=== PATIENT | male | born 1940 | race Caucasian/White ===

== ENCOUNTER → 2020-04-23 10:17 | Outpatient (BNVA) | payer BC, SELFPAY | PROVIDERS: Family Provider Internal Medicine; PCP Internal Medicine; Referring Provider Dermatology; Visit Provider Dermatology | DX: Z85.828 Personal history of other malignant neoplasm of skin (principal); D48.9 Neoplasm of uncertain behavior, unspecified; L57.0 Actinic keratosis; D18.01 Hemangioma of skin and subcutaneous tissue; L82.1 Other seborrheic keratosis | CPT/HCPCS: 11102; 11103; 17000; 17003; 88304; 88305; 99203; 99204 ==

== ENCOUNTER → 2020-04-24 08:02 | Outpatient (BNVA) | payer BC, SELFPAY | PROVIDERS: Family Provider Internal Medicine; PCP Internal Medicine; Visit Provider Urology | DX: R33.9 Retention of urine, unspecified (principal) | CPT/HCPCS: 81001 ==

== ENCOUNTER → 2020-05-29 12:47 | Outpatient (BNVA) | payer BC, SELFPAY | PROVIDERS: Family Provider Internal Medicine; PCP Internal Medicine; Visit Provider Dermatology | DX: D48.9 Neoplasm of uncertain behavior, unspecified (principal) | CPT/HCPCS: 88304 ==

== ENCOUNTER → 2021-01-15 15:07 | Outpatient (BNVA) | payer MEDICARE, SELFPAY | PROVIDERS: Family Provider Internal Medicine; PCP Internal Medicine; Visit Provider Specialist | DX: G20 Parkinson's disease (principal) | CPT/HCPCS: 99204 ==

== ENCOUNTER → 2021-04-23 08:34 | Outpatient (BNVA) | payer MEDICARE, SELFPAY | PROVIDERS: Family Provider Internal Medicine; PCP Internal Medicine; Visit Provider Urology | DX: R33.9 Retention of urine, unspecified (principal) | CPT/HCPCS: 81003 ==

== ENCOUNTER → 2021-06-30 12:55 | Outpatient (BNVA) | payer MEDICARE, SELFPAY | PROVIDERS: Family Provider Internal Medicine; PCP Internal Medicine; Visit Provider Nurse Practitioner | DX: G20 Parkinson's disease (principal) | CPT/HCPCS: 99213; 99214 ==

== ENCOUNTER → 2022-01-01 09:42 | Outpatient (BNVA) | payer MEDICARE, SELFPAY | PROVIDERS: Family Provider Internal Medicine; PCP Internal Medicine; Visit Provider Nurse Practitioner | DX: G20 Parkinson's disease (principal); M25.561 Pain in right knee | CPT/HCPCS: 99212; 99213 ==

== ENCOUNTER → 2022-11-20 07:53 | Outpatient (BNVA) | payer MEDICARE, SELFPAY | PROVIDERS: Family Provider Internal Medicine; PCP Internal Medicine; Visit Provider Nurse Practitioner | DX: G20 Parkinson's disease (principal) | CPT/HCPCS: 99213 ==

== ENCOUNTER → 2023-03-24 08:52 | Outpatient (BNVA) | payer MEDICARE, SELFPAY | PROVIDERS: Family Provider Internal Medicine; PCP Internal Medicine; Visit Provider Specialist | DX: G20 Parkinson's disease | CPT/HCPCS: 99215 ==

== ENCOUNTER → 2023-04-29 13:10 | Outpatient (BNVA) | payer MEDICARE, SELFPAY | PROVIDERS: Family Provider Internal Medicine; PCP Internal Medicine; Visit Provider Nurse Practitioner Family | DX: L57.0 Actinic keratosis (principal); L57.8 Other skin changes due to chronic exposure to nonionizing radiation; L81.4 Other melanin hyperpigmentation | CPT/HCPCS: 17000; 17003; 99213 ==

== ENCOUNTER → 2023-06-23 09:20 | Outpatient (BNVA) | payer MEDICARE, SELFPAY | PROVIDERS: Family Provider Internal Medicine; PCP Internal Medicine; Visit Provider Specialist | DX: G20.A1 Parkinson's disease without dyskinesia, without mention of fluctuations (principal); H90.5 Unspecified sensorineural hearing loss | CPT/HCPCS: 99214 ==

== ENCOUNTER 2023-07-19 08:38 | Emergency (ER) | payer MEDICARE, SELFPAY ==
--- NOTE | 2023-07-19 08:42 | XRR_ITS ---
PROCEDURE INFORMATION: Exam: XR Abdomen Exam date and time: 07/19/2023 9:58 AM Age: 83 years old Clinical indication: Constipation; Abdominal pain; Generalized; Additional info: Constipation, abd cramping TECHNIQUE: Imaging protocol: Radiologic exam of the abdomen. Views: 2 Views. Upright and supine views. COMPARISON: No relevant prior studies available. FINDINGS: Gastrointestinal tract: No bowel obstruction or free air. [id number] amount of stool suggests constipation. Otherwise, unremarkable. Intraperitoneal space: Otherwise, unremarkable. Bones/joints: Mild scoliosis with mild multilevel spondylosis. XR/XR acute abdomen series 28534 IMPRESSION: Probable constipation.
[2023-07-19 08:57] VITALS: BP 172/72; PULSE 65; RESP 18; TEMP 36.4; O2SAT 96; BMI 21.7
[2023-07-19 09:17] LABS: Basophils # 0.1 10^3/uL (0.0-0.1); Basophils % 0.7 %; Eosinophils % 0.3 %; Hematocrit 48.4 % (37-53); Lymphocytes # 0.9 10^3/uL (0.8-4.8); Mean Corpuscular HGB Conc 33.5 g/dL (30-55); Mean Corpuscular Hemoglobin 31.8 pg (27-33); Mean Corpuscular Volume 94.9 fl (82-101); Mean Platelet Volume 11.3 fL (7.4-10.4); Monocytes # 0.4 10^3/uL (0.2-0.9); Neutrophils # 5.84 10^3/uL (1.8-7.7); Neutrophils % 80.7 %; Nucleated Red Blood Cells % 0 %; Platelet Count 169 10^3/cmm (157-399); Red Cell Distribution Width 12.4 % (12.1-15.1); White Blood Count 7.23 10^3/uL (3.29-11.43)
--- NOTE | 2023-07-19 09:38 | ED_ITS ---
HPI - Abdominal Pain 2 General: Chief Complaint: Abdominal Pain Stated Complaint: severe constipation/dx hernia Time Seen by Provider: 07/19/23 08:42 Source: patient Mode of arrival: ambulatory History of Present Illness: 83-year-old male presents emergency room has not had a bowel movement in several days. He was seen this morning at a walk-in clinic and referred to the emergency room he also has a left inguinal hernia. He continues to eat and drink he has not had any vomiting no fever sweats chills hematochezia melena hematemesis coffee-ground emesis MD elicited complaint: abdominal pain Onset (ago): day(s) (-) Location: Groin (Left) Exacerbating factors: nothing Relieving factors: nothing Associated Symptoms: Reports constipation and GI cramping; Denies anorexia, belching, bloating, change in bowel habits, change in stool character, chills, coffee ground emesis, diarrhea, dyspepsia, dysuria, excessive flatus, fever(s), heartburn, hematochezia, hematuria, hematemesis, fecal incontinence, loose stools, melena, nausea, poor appetite, syncope and vomiting Review of Systems 2 Const: Denies: fever(s) or chills Card: Denies: syncope Resp: Denies: dyspnea GI: Reports: constipation and GI cramping; Denies: nausea, vomiting, hematemesis, coffee ground emesis, heartburn, diarrhea, bloating, belching, excessive flatus, fecal incontinence, change in bowel habits, change in stool character, hematochezia or melena : Denies: dysuria or hematuria Musc: Denies: neck pain or back pain Skin/Breast: Denies: rash PFSH ED 2 PFSH: Medical History Parkinson disease BPH associated with nocturia Hypercholesterolemia HTN (hypertension) Elevated PSA Urinary retention History of skin cancer History of nonmelanoma skin cancer Surgical History Hx of tonsillectomy Hx of appendectomy History of back surgery Hx of bilateral cataract extraction Hx of prostate biopsy Family History Father , AT AGE 63 LUNG CANCER Cancer Mother , AT AGE 93 [place] CHF Stroke Social History Smoking and tobacco/nicotine status: never used tobacco/nicotine Alcohol intake: never Substance/Drug Use: unknown Adopted: No Caregiver/support person: No Lives independently: No Household members: spouse Marital status: Current occupational status: retired Physical Exam 2 Const: COMMON NORMALS: no acute distress GENERAL APPEARANCE: cooperative and comfortable ORIENTATION/CONSCIOUSNESS: Yes awake, Yes oriented to person, Yes oriented to place and Yes oriented to time HENMT: COMMON NORMALS: normocephalic, atraumatic and hearing grossly normal bilaterally HEAD & SCALP: normocephalic and atraumatic Resp: COMMON NORMALS: normal respiratory effort, No retractions, No use of accessory muscles and clear to auscultation bilaterally AUSCULTATION: clear to auscultation bilaterally Cardio: COMMON NORMALS: regular rate, regular rhythm and No murmurs present (Cardio) RATE: regular rate RHYTHM: regular rhythm GI: COMMON NORMALS: Soft to palpation and No hepatosplenomegaly present A USCULTATION: Yes normoactive bowel sounds PALPATION: Yes Soft to palpation, No Tenderness to palpation present (GI), No Guarding due to palpation present (GI) and Yes No hepatosplenomegaly present OTHER: Large left inguinal hernia was easily reducible hernia contents. Benign abdominal exam with normal bowel sounds Extremity: COMMON NORMALS: normal to inspection, capillary refill normal, no clubbing, cyanosis or edema, no calf tenderness and no pedal edema Neuro: SENSORIUM/ORIENTATION: Yes oriented to person, Yes oriented to place and Yes oriented to time Skin: COMMON NORMALS: no rashes or lesions noted GENERAL SKIN EXAM: no rashes or lesions noted Course 2 Vital Signs: Vital signs: Vital Signs Temperature 97.6 F 07/19/23 08:57 Pulse Rate 65 07/19/23 08:57 Respiratory Rate 18 07/19/23 08:57 Blood Pressure 172/72 07/19/23 08:57 Pulse Oximetry 96 07/19/23 08:57 Oxygen Delivery Me thod Room Air 07/19/23 08:57 MDM - Abdominal Pain Medical Decision Making Patient has an easily reducible left inguinal hernia. Large amount of stool on flat and upright of the abdomen. Abdomen otherwise benign on exam. Labs and imaging reviewed discussed with the patient discharged home with magnesium citrate. Patient and family asked about the hernia it is large and easily reducible. He could see a surgeon however at his age may not need to have it surgically repaired. Will refer him back to his primary for general surgery referral as appropriate. Medical Records I reviewed the patient's medical records. Lab Data I reviewed the patient's lab results. 07/19/23 09:11 07/19/23 09:11 Labs/Radiology: Radiology Impressions Chest/Abdomen X-ray 07/19/23 08:42 IMPRESSION: Probable constipation. Laboratory Results WBC 7.23 10^3/uL (3.29-11.43) 07/19/23 09:11 RBC 5.10 10^6/uL (3.85-5.65) 07/19/23 09:11 Hgb 16.20 g/dL (11.27-16.99) 07/19/23 09:11 Hct 48.4 % (37-53) 07/19/23 09:11 MCV 94.9 fl (82-101) 07/19/23 09:11 MCH 31.8 pg (27-33) 07/19/23 09:11 MCHC 33.5 g/dL (30-55) 07/19/23 09:11 RDW 12.4 % (12.1-15.1) 07/19/23 09:11 Plt Count 169 10^3/cmm (157-399) 07/19/23 09:11 MPV 11.3 fL (7.4-10.4) H 07/19/23 09:11 Neut % (Auto) 80.7 % 07/19/23 09:11 Lymph % (Auto) 13.0 % 07/19/23 09:11 Porter % (Auto) 5.0 % 07/19/23 09:11 Eos % (Auto) 0.3 % 07/19/23 09:11 Baso % (Auto) 0.7 % 07/19/23 09:11 Neut # (Auto) 5.84 10^3/uL (1.8-7.7) 07/19/23 09:11 Lymph # (Auto) 0.9 10^3/uL (0.8-4.8) 07/19/23 09:11 Porter # (Auto) 0.4 10^3/uL (0.2-0.9) 07/19/23 09:11 Eos # (Auto) 0.0 10^3/uL (0.0-0.8) 07/19/23 09:11 Baso # (Auto) 0.1 10^3/uL (0.0-0.1) 07/19/23 09:11 Nucleated RBC % (auto) 0 % 07/19/23 09:11 Nucleated RBCs # 0.0 /100WBC 07/19/23 09:11 Sodium 136 mmol/L (136-145) 07/19/23 09:11 Potassium 4.0 mmol/L (3.5-5.1) 07/19/23 09:11 Chloride 101 mmol/L (98-107) 07/19/23 09:11 Carbon Dioxide 26 mmol/L (22-29) 07/19/23 09:11 Anion Gap 13.0 (5-19) 07/19/23 09:11 BUN 16 mg/dL (8-23) 07/19/23 09:11 Creatinine 0.8 mg/dL (0.7-1.2) 07/19/23 09:11 GFR Calculation Not Reportable 07/19/23 09:11 Glucose 94 mg/dL (65-115) 07/19/23 09:11 Calculated Osmolality 283 mOsm/kg (285-295) L 07/19/23 09:11 Calcium 9.1 mg/dL (8.5-10.5) 07/19/23 09:11 Total Bilirubin 1.3 mg/dL (0.15-1.2) H 07/19/23 09:11 AST 13 U/L (0-40) 07/19/23 09:11 ALT < 5 U/L (0-41) 07/19/23 09:11 Alkaline Phosphatase 82 U/L (40-130) 07/19/23 09:11 Total Protein 6.6 g/dL (6.6-8.7) 07/19/23 09:11 Albumin 4.3 g/dL (3.5-5.2) 07/19/23 09:11 Globulin 2.3 g/dL (1.3-4.6) 07/19/23 09:11 All radiology interpretation(s) finalized by discharge Discharge Plan Discharge Patient Disposition: Home Clinical Impression: Constipation Condition: Stable Prescriptions: New magnesium citrate Solution 150 ml PO BID PRN (Reason: constipation) Qty: 296 2RF No Action clopidogrel 75 mg tablet 37.5 mg PO DAILY cholecalciferol (vitamin D3) 50 mcg (2,000 unit) tablet 50 mcg PO DAILY alprazolam 0.25 mg tablet 0.25 mg PO DAILY joint care 1 cap PO DAILY pravastatin 40 mg tablet 20 mg PO DAILY flaxseed oil 1,000 mg capsule 1,000 mg PO DAILY Rx Instructions: administer with a meal atenolol 25 mg tablet 12.5 mg PO DAILY ascorbic acid (vitamin C) 500 mg capsule 500 mg PO DAILY carbidopa-levodopa 25-100 mg tablet 2 tab PO .COMPLEX Qty: 900 3RF Rx Instructions: 2 tabs at 05 30, 09 30, 1330, 1830, 2230 amantadine HCl 100 mg capsule 100 mg PO BID Qty: 60 5RF Rx Instructions: Okay to switch to 90 days after the first month finasteride 5 mg tablet 5 mg PO DAILY Discharge Orders: Discharge ED (Routine); Ordered 07/19/23 Ordered By: Torsten Jennings Referrals: Noble Kirby DO [Primary Care Provider] - Discharge Diet: Usual diet Discharge Activity: Increase activity as tolerated Patient Instructions: Constipation (ED), Opioid Safety, Pain Management Activity Restrictions/Additional Instructions: Thank you for choosing [facility] for your healthcare needs today. Please realize this is an emergency room and that we are providing you with a medical screening exam and this may not be complete and all inclusive of all the testing and or work up that you may need to determine your ailment or severity of your illness. It is very important that you follow up as instructed or that you return to the Emergency Department should you have concerns or if your condition changes or worsens in any way. You were seen today for abdominal discomfort. You do have a hernia but it is easily reducible and does not require surgery at this time. You can follow-up with your primary care doctor regarding the hernia. You do have constipation. There is no sign of bowel obstruction. Use magnesium citrate half bottle every 8-12 hours until adequate results achieved. Coding Level of Care Code ED Help Desk Intern for Oni Arciniega
[2023-07-19 09:48] LABS: Alanine Aminotransferase < 5 U/L (0-41); Albumin Level 4.3 g/dL (3.5-5.2); Alkaline Phosphatase 82 U/L (40-130); Aspartate Amino Transferase 13 U/L (0-40); Blood Urea Nitrogen 16 mg/dL (8-23); Calcium 9.1 mg/dL (8.5-10.5); Carbon Dioxide 26 mmol/L (22-29); Chloride 101 mmol/L (98-107); Globulin 2.3 g/dL (1.3-4.6); Glucose 94 mg/dL (65-115); Osmolality Calculated 283 mOsm/kg (285-295); Sodium 136 mmol/L (136-145); Total Bilirubin 1.3 mg/dL (0.15-1.2); Total Protein 6.6 g/dL (6.6-8.7)
== END 2023-07-19 10:50 | disposition home or self-care (01) ==
PROVIDERS: Emergency Provider Family Medicine; PCP Internal Medicine
DX: K59.00 Constipation, unspecified (principal); Z79.02 Long term (current) use of antithrombotics/antiplatelets; G20.A1 Parkinson's disease without dyskinesia, without mention of fluctuations; I10 Essential (primary) hypertension
CPT/HCPCS: 36415; 74022; 80053; 85025; 99284

== ENCOUNTER → 2023-12-21 11:16 | Outpatient (BNVA) | payer MEDICARE, SELFPAY | PROVIDERS: PCP Internal Medicine; Visit Provider Specialist | DX: R29.90 Unspecified symptoms and signs involving the nervous system (principal); G20.A1 Parkinson's disease without dyskinesia, without mention of fluctuations | CPT/HCPCS: 99213 ==

== ENCOUNTER → 2024-05-01 08:05 | Outpatient (BNVA) | payer MEDICARE, SELFPAY | PROVIDERS: PCP Internal Medicine; Visit Provider Nurse Practitioner Family | DX: D48.5 Neoplasm of uncertain behavior of skin (principal); K40.90 Unilateral inguinal hernia, without obstruction or gangrene, not specified as recurrent; L81.4 Other melanin hyperpigmentation; L57.0 Actinic keratosis | CPT/HCPCS: 11102; 17000; 99213 ==

== ENCOUNTER → 2024-05-17 12:22 | Outpatient (BNVA) | payer MEDICARE, SELFPAY | PROVIDERS: PCP Internal Medicine; Visit Provider Surgery | DX: Z51.81 Encounter for therapeutic drug level monitoring (principal); Z79.1 Long term (current) use of non-steroidal anti-inflammatories (NSAID); Z01.812 Encounter for preprocedural laboratory examination | CPT/HCPCS: 36415; 71045; 80048; 85025; 99205 ==

== ENCOUNTER 2024-05-22 07:32 | Day surgery (SDC) | payer MEDICARE, SELFPAY ==
[2024-05-22] VITALS (8 sets, daily range): BP systolic 111–133; BP diastolic 63–90; PULSE 52–61; RESP 12–16; TEMP 36.2–36.6; O2SAT 100; BMI 21.0
[2024-05-22] MEDS: sodium chloride 0.9% 1,000 ML 30 ML IV (08:43)
--- NOTE | 2024-05-22 08:51 | W.PM.OPSUD ---
Surgery/Procedure H&P Update DATE OF PROCEDURE: May 22, 2024 DATE H&P PERFORMED: 05/17/24 H&P UPDATE INFORMATION: I have reviewed H&P completed within last 30 days, I have examined patient prior to procedure, No changes to prior documentation and H&P is in [facility] on date indicated PLANNED PROCEDURE: Operation Date: 05/22/24 09:10 Proposed Procedures p Excision Of Pelvic/Groin Mass/Lesion/Cys Excision of Hidradenitis Suppurativa Right Groin(Right) - Alejandro Wallace MD
--- NOTE | 2024-05-22 09:17 | ANES.PREANE2 ---
Pre-Anesthetic Assessment Height/Weight: Height 1.8 m Weight 68.492 kg O2 Del Method Room Air 05/22/24 08:17 Operation Date: 05/22/24 09:10 Proposed Procedures p Excision Of Pelvic/Groin Mass/Lesion/Cys Excision of Hidradenitis Suppurativa Right Groin(Right) - Alejandro Wallace MD Familial anesthetic complications: None Was Beta Jayla taken within 24 hours: N/A Was Clonidine taken within 24 hours: N/A Last intake: Intake Last Liquid Date 05/21/24 Last Liquid Time 21:00 Last Solid Date 05/21/24 Last Solid Time 20:30 Social No alcohol and No tobacco Exam alert, oriented x 3, clear to auscultation bilaterally and regular rate & rhythm Airway Mallampati: Class II Dentition: full CV/HEM Hypertension Metabolic Hyperlipidemia Neuropsych parkinsons Anesthetic Plan ASA status: 3 Anesthesia: General Risk of > 500 ml blood loss (7ml/kg in children): No Medications/Allergies Home Medications Medication Instructions Recorded Confirmed Last Taken Type alprazolam 0.25 mg tablet 0.25 mg PO DAILY 04/23/20 05/19/24 05/18/24 History cholecalciferol (vitamin D3) 50 50 mcg PO DAILY 04/23/20 05/19/24 05/19/24 History mcg (2,000 unit) tablet clopidogrel 75 mg tablet 37.5 mg PO DAILY 04/23/20 05/19/24 05/16/24 History flaxseed oil 1,000 mg capsule 1,000 mg PO DAILY 04/23/20 05/19/24 05/19/24 History joint care 1 cap PO DAILY 04/23/20 05/19/24 05/19/24 History pravastatin 40 mg tablet 20 mg PO DAILY 04/23/20 05/19/24 05/19/24 History atenolol 25 mg tablet 12.5 mg PO DAILY 04/24/20 05/19/24 05/22/24 History ascorbic acid (vitamin C) 500 mg 500 mg PO DAILY 04/23/21 05/19/24 05/19/24 History capsule finasteride 5 mg tablet 5 mg PO DAILY 07/19/23 05/19/24 05/19/24 History amantadine HCl 100 mg capsule 100 mg PO BID #180 caps 12/21/23 05/19/24 05/22/24 Rx carbidopa 25 mg-levodopa 100 mg 2 tab PO .COMPLEX #900 tabs 12/21/23 05/19/24 05/22/24 Rx tablet polyethylene glycol 1 ea miscellaneous DAILY PRN 05/19/24 05/19/24 05/18/24 History Constipation Allergies Allergy/AdvReac Type Severity Reaction Status Date / Time Penicillins Allergy Unknown Unknown Verified 05/17/24 11:15 Current Medications Generic Name Dose Route Start Last Admin Trade Name Freq PRN Reason Stop Dose Admin Sodium Chloride 1,000 mls @ 30 mls/hr 05/22/24 07:45 05/22/24 08:43 Sodium Chloride 0.9% IV 05/23/24 07:44 30 mls/hr .Q24H BRIANNA Administration PFSH Anesthesia Medical History Parkinson disease BPH associated with nocturia Hypercholesterolemia HTN (hypertension) Elevated PSA Urinary retention History of skin cancer History of nonmelanoma skin cancer Surgical History Hx of tonsillectomy Hx of appendectomy History of back surgery Hx of bilateral cataract extraction Hx of prostate biopsy Family History Father , AT AGE 63 LUNG CANCER Cancer Mother , AT AGE 93 [address] CHF Stroke Social History Smoking and tobacco/nicotine status: never used tobacco/nicotine Alcohol intake: never Substance/Drug Use: unknown Adopted: No Caregiver/support person: No Lives independently: No Household members: spouse Marital status: Current occupational status: retired Data Anesthesia Cardiac Studies: No Data to Display
[2024-05-22] MEDS: ceFAZolin 2,000 mg SDV 2000 MG IVP (09:28)
[2024-05-22] MEDS: lidocaine-epi 1% PF 1:200,000 30 mL SDV INJECTION (10:33)
[2024-05-22] MEDS: BUPivacaine 0.25% INJ 30 mL INJECTION (10:33)
--- NOTE | 2024-05-22 11:26 | P.OP_ITS ---
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 Procedure done: Wide Local excision of right groin mass 6x5cm Specimens removed/disposition: Right groin mass marked short superior and long lateral Surgeon: Alejandro Wallace MD Model Making Supervisor: BETSY OR Staff Estimated blood loss: 10 Brief History: This is a 84-year-old male who is referred to my clinic for verrucous lesion on the right helix and right groin that requires wide local excision. After discussion of all risks and benefits involved with the procedure we decided to proceed Procedure: Patient was brought into the OR, he was placed in a supine position. General anesthesia was given. The groin was prepped and draped in the usual sterile fashion. Timeout was conducted. I evaluated the lesion in the groin in order to incorporate the complete lesion and leave adequate margins I plan to proceed with italic S incision incorporating the complete lesion. The skin was marked, I then used a 15 blade to make incision following the markings in the skin. This incision was deepened to the subcutaneous tissue and then I proceeded to excise the lesion with the subcutaneous tissue, careful consideration was taken not to injure the underlying structures especially at the level of the upper scrotum. The specimen was marked with a short superior and long lateral silk sutures. The wound was irrigated and hemostasis was achieved. A small subcutan eous flaps were created to prevent tension in the closure. This was done with electrocautery. I then proceeded to close the wound in layers using #3-0 Vicryl for the deep tissue and the subcutaneous tissue and #3-0 nylon for the skin. This was a complex closure and the final wound measurement was 13 cm. A sterile dressing was applied. At the end of the procedure all counts were correct, the patient tolerated well the procedure was transferred to PACU in stable condition.
--- NOTE | 2024-05-22 12:05 | ANE.PACU2 ---
Inpatient post-anesthesia follow up: Airway intact: Yes Vital signs: Temperature 97.9 F Pulse Rate 61 Respiratory Rate 16 Blood Pressure 133/76 Pulse Oximetry 100 Oxygen Delivery Me thod Room Air Oxygen Flow Rate 1 Fraction of Inspir ed Oxygen Hydration adequate: Yes Nausea and vomiting: No Pain level: 1 Mental status: Baseline
== END 2024-05-22 13:30 | disposition home or self-care (01) ==
PROVIDERS: PCP Internal Medicine; Visit Provider Surgery
DX: C76.3 Malignant neoplasm of pelvis (principal); I10 Essential (primary) hypertension; E78.5 Hyperlipidemia, unspecified; G20.A1 Parkinson's disease without dyskinesia, without mention of fluctuations; N40.0 Benign prostatic hyperplasia without lower urinary tract symptoms; E78.00 Pure hypercholesterolemia, unspecified
CPT/HCPCS: 11606; 12032; 88307; J0690; J1100; J2405; J2704; J3010; J3490; J7030

== ENCOUNTER → 2024-06-07 10:00 | Outpatient (BNVA) | payer MEDICARE, SELFPAY | PROVIDERS: PCP Internal Medicine; Visit Provider Surgery | DX: Z85.828 Personal history of other malignant neoplasm of skin (principal) | CPT/HCPCS: 99024 ==

== ENCOUNTER → 2024-06-13 11:39 | Outpatient (BNVA) | payer MEDICARE, SELFPAY | PROVIDERS: PCP Internal Medicine; Visit Provider Surgery | DX: Z85.828 Personal history of other malignant neoplasm of skin (principal); G20.A1 Parkinson's disease without dyskinesia, without mention of fluctuations | CPT/HCPCS: 99024 ==

== ENCOUNTER → 2024-06-21 12:34 | Outpatient (BNVA) | payer MEDICARE, SELFPAY | PROVIDERS: PCP Internal Medicine; Visit Provider Specialist | DX: R29.90 Unspecified symptoms and signs involving the nervous system (principal); G20.A1 Parkinson's disease without dyskinesia, without mention of fluctuations; M17.0 Bilateral primary osteoarthritis of knee; H91.90 Unspecified hearing loss, unspecified ear | CPT/HCPCS: 99214 ==

== ENCOUNTER → 2024-08-23 08:20 | Outpatient (BNVA) | payer MEDICARE, SELFPAY | PROVIDERS: PCP Family Medicine; Visit Provider Nurse Practitioner Family | DX: L60.8 Other nail disorders (principal); L81.4 Other melanin hyperpigmentation; L57.8 Other skin changes due to chronic exposure to nonionizing radiation; D22.5 Melanocytic nevi of trunk; A63.0 Anogenital (venereal) warts; Z08 Encounter for follow-up examination after completed treatment for malignant neoplasm; Z85.828 Personal history of other malignant neoplasm of skin; L57.0 Actinic keratosis | CPT/HCPCS: 17000; 99213 ==